=== PATIENT | male | born 1960 | race Caucasian/White ===

== ENCOUNTER 2021-06-15 18:32 | Emergency (ER) | payer OTHER ==
[~2021-06-15] VITALS: Ht 167.6 cm; Wt 119.8 kg
[~2021-06-15 18:32] MED LIST: AMLODIPINE BESYL5 MG PO; ASPIR-LOW81 MG PO; AUGMENTIN 875-1 EACH PO; CLARITIN10 M2 PO; FLONASE2 SPRAY; IBUPROFEN600 MG PO; IMITREX100 MG PO; LISINOPRIL-HCT1 EAC1 PO; MEDROL4 M1 PO; NORCO 5-325 TA1 EACH PO; OMEPRAZOLE20 MG PO; PIROXICAM10 MG PO
[2021-06-15] MEDS ORDERED: DULOXETINE HCL30 MG PO (23:03)
[2021-06-15] MEDS ORDERED: PREGABALIN150 MG PO (23:04)
[2021-06-15] MEDS ORDERED: MELOXICAM7.5 MG PO (23:04)
[2021-06-16] MEDS ORDERED: HYDROCODON-ACE1 EA10 PO (00:49)
== END 2021-06-16 01:19 | disposition home or self-care (01) ==
LOC: ED 18:32
DX: S62.317A Displaced fracture of base of fifth metacarpal bone, left hand, initial encounter for closed fracture (principal); S62.617A Displaced fracture of proximal phalanx of left little finger, initial encounter for closed fracture; I10 Essential (primary) hypertension; M19.90 Unspecified osteoarthritis, unspecified site; Z87.891 Personal history of nicotine dependence; Z79.899 Other long term (current) drug therapy; Z79.82 Long term (current) use of aspirin; W18.30XA Fall on same level, unspecified, initial encounter
CPT/HCPCS: 29125; 73130; 99283-25